=== PATIENT | male | born 1995 | race Caucasian/White ===

== ENCOUNTER 2019-07-13 16:48 | Emergency (ER) | payer BC ==
[~2019-07-13] VITALS: Ht 175.3 cm; Wt 81.6 kg
[~2019-07-13 16:48] MED LIST: PRO AIR; PROSUD INH; XOP1.25
[2019-07-13 16:52] VITALS: Ht 175.3 cm; Wt 81.6 kg
[2019-07-13 18:10] VITALS: BP 110/67
== END 2019-07-13 18:10 | disposition home or self-care (01) ==
LOC: ED 16:48
DX: J06.9 Acute upper respiratory infection, unspecified (principal); J45.901 Unspecified asthma with (acute) exacerbation; Z90.89 Acquired absence of other organs
CPT/HCPCS: J1100; J7613; J7644; Q0092

== ENCOUNTER 2019-07-14 21:08 | Inpatient (IN) | payer BC ==
[~2019-07-14] VITALS: Ht 175.3 cm; Wt 83.5 kg
[2019-07-14 21:12] VITALS: Ht 175.3 cm; Wt 83.5 kg
--- NOTE | 2019-07-14 21:12 | NUR ---
TAKEN TO BED 2A FOR BEDSIDE TRIAGE.
--- NOTE | 2019-07-14 21:21 | NUR ---
PT CAME TO ED DUE TO C/O OF SOB, COUGH AND SORE THROAT, PT WAS SEEN MD YESTERDAY AND RECEIVED PREDNISONE AND ALBUTEROL, PT STATED THAT TODAY ITS HARD FOR HIM TO BREATH AND HE USED HIS INHALER FOR 50 TIMES AND HAD NEB TREATMENT 4-5 TIMES PRIOR TO ED, PT IS AAO X 4, MILD SOB ON EXERTION, LUNG SOUNDS WITH INS WHEEZING, ON ROOM AIR WITH SPO2:95%-100%, DR BARRETT AT BEDSIDE AND MSE DONE.
[2019-07-14 23:08] LABS: BASOPHIL % 0.1 % (0-2); PLATELET COUNT 192 x10^3mcL (130-400); RED CELL DISTRIBUTION WIDTH 13.3 % (11.5-14.5)
[2019-07-14 23:18] LABS: CALCIUM 8.5 mg/dL (8.5-10.1); CARBON DIOXIDE 25.4 mmol/L (21-32); CHLORIDE SERUM 105 mmol/L (98-107); CREATININE SERUM 1.1 mg/dL (0.7-1.3); GFR1 > 60 mL/min; GLUCOSE SERUM 137 mg/dL (74-106); POTASSIUM SERUM 3.1 mmol/L (3.5-5.1); SODIUM SERUM 142 mmol/L (136-145)
--- NOTE | 2019-07-14 23:29 | NUR ---
PT'S TEMP:101.5 VIA ORAL, DR BARRETT MADE AWARE.
[2019-07-14 23:34] LABS: ALBUMIN 3.7 g/dL (3.4-5.0); ALKALINE PHOSPHATASE 91 U/L (46-116); ALT/SGPT 33 U/L (16-63); AST/SGOT 14 U/L (15-37); BILIRUBIN TOTAL 0.15 mg/dL (0.20-1.00); TOTAL PROTEIN, SERUM 7.1 g/dL (6.4-8.2)
[2019-07-15] VITALS (8 sets, daily range): BP systolic 93–129; BP diastolic 50–79
--- NOTE | 2019-07-15 | NUR ---
REPORT CALLED AND GIVEN TO NANCY, ALL QUESITONS ANSWERED AND CONCERNS ADDRESSED.
--- NOTE | 2019-07-15 01:17 | NUR ---
RECEIVED FROM ER, TRANSPORTED VIA [facility]. AWAKE AND ALERT, ORIENTED TO NAME, PLACE, TIME AND SITUATION. SPEECH CLEAR AND APPROPRIATE. AMBULATED TO ROOM WITH STEADY GAIT. LUNG SOUNDS DIMINISHED TO BASES. ON ROOM AIR. RR 22/MIN. HR 120/MIN. SINUS IN RHYTHM. SALINE LOCK TO LEFT AC. INSTRUCTED ON USE OF CALL LIGHT TO CALL FOR ASSISTANCE, PLACED WITHIN EASY REACH. PT'S SPOUSE WITH PT ON ADMISSION TO UNIT. ENDORSED TO NURSE MARQUEZ
--- NOTE | 2019-07-15 01:17 | NUR ---
RECEIVED A CALL FROM LAB, LACTIC ACID=3.0. DR. HILL IS PAGED TO MADE AWARE, WAITING FOR CALLBACK. PRIMARY NURSE MADE AWARE
--- NOTE | 2019-07-15 02:12 | NUR ---
MADE AWARE BY RESOURCE RN, LACTIC ACID: 3.0. PAGED AND PAGEGATED. ORDERED RECEIVED FOR 1L NS BOLUS AND REPEAT LAB FOR LACTIC ACID. BOLUS ADMINISTERED. IV PATENT AND INTACT. ON TELE# [address] FEBRILE AT 101.0, COOLING MEASURE INITIATED. SCHEDULED MEDICATIONS ADMINISTERED. C/O SORE THROAT MEDICATED PER EMAR. BED IN LOWEST POSITION. SIDE RAILS UPX2. CALL LIGHT WITHIN REACH. WILL CONTINUE TO MONITOR.
[2019-07-15 02:41] LABS: AMPHETAMINE QUAL UR NONE DETECTED (See below)
[2019-07-15 03:48] LABS: PLATELET COUNT 192 x10^3mcL (130-400); RED CELL DISTRIBUTION WIDTH 13.2 % (11.5-14.5)
[2019-07-15 03:50] LABS: BASOPHIL % 0 % (0-2)
[2019-07-15 04:02] LABS: CALCIUM 7.4 mg/dL (8.5-10.1); CARBON DIOXIDE 20.7 mmol/L (21-32); CHLORIDE SERUM 108 mmol/L (98-107); CREATININE SERUM 1.1 mg/dL (0.7-1.3); GFR1 > 60 mL/min; GLUCOSE SERUM 169 mg/dL (74-106); MAGNESIUM 1.3 mg/dL (1.8-2.4); PHOSPHOROUS 3.2 mg/dL (2.5-4.9); POTASSIUM SERUM 3.6 mmol/L (3.5-5.1); SODIUM SERUM 143 mmol/L (136-145)
--- NOTE | 2019-07-15 06:41 | NUR ---
PT SLEPT IN INTERVALS THROUGHOUT THE SHIFT. FAMILY AT BEDSIDE. ALL NEEDS TENDED TO AND MET. ALL SCHEDULED MEDICATIONS GIVEN. EVEN AND UNLABORED RESPIRATIONS ON RA. ON TELE# 21 READING SR/SA 67. IV PATENT AND INTACT RUNNING FLUIDS PER EMAR. WILL ENDORSE TO ONCOMING SHIFT.
--- NOTE | 2019-07-15 07:25 | NUR ---
REPORT TAKEN FROM COMPUTER PERIPHERAL EQUIPMENT OPERATOR NURSE AT THE BEDSIDE, PATIENT RESTING WITH EYES CLOSED AT THIS TIME, CHEST RISE AND FALL OBSERVED, PATIENT IN NO ACUTE DISTRESS, WILL CONTINUE TO MONITOR.
--- NOTE | 2019-07-15 17:20 | NUR ---
DR. ABREU MADE AWARE THAT PT IS INFLUENZA A POSITIVE. PRIMARY NURSE DAIANA MADE AWARE
--- NOTE | 2019-07-15 19:10 | NUR ---
CARE ASSUMED FROM OUTGOING RN. PT RESTING COMFORTABLY IN BED. NO ACUTE DISTRESS NOTED. EVEN AND UNLABORED RESPIRATIONS ON RA. ON TELE# 21 READING SB/SA 59. IV PATENT AND INTACT RUNNING FLUIDS PER EMAR. DROPLET PRECAUTION IN PLACE. BED IN LOWEST POSITION. SIDE RAILS UPX2. CALL LIGHT WITHIN REACH. WILL CONTINUE TO MONITOR.
--- NOTE | 2019-07-15 23:25 | NUR ---
PT RESTING COMFORTABLY IN BED. NO ACUTE DISTRESS NOTED. EVEN AND UNLABORED RESPIRATIONS ON RA. STATES NEED BREATHING TX SOON DUE TO FEELING CHEST TIGHTENING, PAGED RT. SCHEDULED ANTIBIOTICS, FLUIDS, AND PAIN MEDICATION GIVEN. PT TOLERATED WELL. BED IN LOWEST POSITION. DROPLET PRECAUTION IN PLACE. SIDE RAILS UPX2. CALL LIGHT WITHIN REACH. WILL CONTINUE TO MONITOR.
[2019-07-16 05:27] VITALS: BP 106/55
--- NOTE | 2019-07-16 06:49 | NUR ---
PT SLEPT IN INTERVALS THROUGHOUT THE SHIFT. ALL NEEDS TENDED TO AND MET. C/O SOB AT TIMES THROUGHOUT THE SHIFT. RT PROTOCOL IN PLACE. DROPLET PRECAUTION IN PLACE. ON TELE# [address] IV PATENT AND INTACT. BED IN LOWEST POSITION. SIDE RAILS UPX2. CALL LIGHT WITHIN REACH. WILL ENDORSE TO ONCOMING SHIFT.
--- NOTE | 2019-07-16 07:00 | NUR ---
RECEIVED REPORTED FROM JIMMY VELAZQUEZ AT BEDSIDE, PT RESTING IN BED IN NO ACUTE DISTRESS
--- NOTE | 2019-07-16 07:15 | NUR ---
PT ON DROPLET ISOLATION D/T INFLUENZA A (+), PT ON TAMIFLU TX AND RT PROTOCOL
[2019-07-16 07:19] LABS: BASOPHIL % 0.1 % (0-2); PLATELET COUNT 221 x10^3mcL (130-400)
[2019-07-16 07:26] LABS: CALCIUM 8.7 mg/dL (8.5-10.1); CARBON DIOXIDE 26.4 mmol/L (21-32); CHLORIDE SERUM 107 mmol/L (98-107); CREATININE SERUM 0.8 mg/dL (0.7-1.3); GFR1 > 60 mL/min; GLUCOSE SERUM 132 mg/dL (74-106); PHOSPHOROUS 4.1 mg/dL (2.5-4.9); POTASSIUM SERUM 3.9 mmol/L (3.5-5.1); SODIUM SERUM 142 mmol/L (136-145)
--- NOTE | 2019-07-16 07:30 | NUR ---
PT RESTING IN BED, IN NO ACUTE DISTRESS, VERBAL, ABLE TO MAKE NEEDS KNOWN, CALM AND COPPERATIVE, AXOX4, PERLLA, NO REDNESS/DRAINAGE, NO FACIAL DROOP/SLURRED SPEECH, RESP EVEN, NO SOB, EPISODES OF PRODUCTIVE COUGH, GREEN IN COLOR, RA, LUNGS DIM BLL, WHEEZING AT TIMES, RT PROTOCOL, I.S. AT BEDSIDE, CHEST RISE SYMMETRICALLY, TELE # 21, SR, HR-87 AT THIS TIME, DENIED CP/PALPITATION, DENIED PAIN/DISCOMFORT, DENIED N/V/D, DENIED EASON/DIZZINESS, ABD FLAT AND NON-TENDER TO TOUCH, BS ACTIVE X 4, SKIN C/D/W, SEE SKIN ASSESSMENT, CONTINENT, AMBULATION, PALP PULSES, CAP REFILL < 2S, EQUAL HAND LOG TRUCK DRIVER, IV PATENT AND INFUSING WELL, REGULAR DIET, ALL NEEDS ADDRESSED AT THIS TIME, SAFETY PROTOCOL FOLLOWED, CONTINUE TO MONITOR
--- NOTE | 2019-07-16 09:09 | NUR ---
AM MEDs GIVEN PER MD ORDER VIA EMAR, TOLERATED WELL, NO ASE NOTED AT THIS TIME, EDUCATED PT R/T MEDs, ASE AND MONITOR, VERBALLY UDNERSTANDING, ALL NEEDS ADDRESSED AT THIS TIME, SAFETY PROTOCOL FOLLOWED, CONTINUE TO MONITOR
[2019-07-16 09:20] VITALS: BP 109/56
--- NOTE | 2019-07-16 13:24 | NUR ---
PT RESTING IN BED, TOLERATED LUNCH WELL, FAMILY AT BEDSIDE, IV PATENT AND INFUSING WELL, ENCOURAGED TO USE I.S. AT BEDSIDE, VERBALLY UNDERSTANDING, RT PROTOCOL, ALL NEEDS ADDRESSED AT THIS TIME, SAFETY PROTOCOL FOLLOWED, CONTINUE TO MONITOR
[2019-07-16 14:09] VITALS: BP 98/46
--- NOTE | 2019-07-16 14:13 | NUR ---
PT TRASNFERED TO MEDSURG, TELE #21 REMOVED AND RETURNED TO [facility], PT REPORTED SORETHROAT, MEDICATED PER PRN ORDER VIA EMAR, TOELRATED WELL, FAMILY AT BEDSIDE, ALL NEEDS ADDRESSED, EDUCATED PT R/T MED, ASE AND MONITOR, VERBALLY UNDERSTANDING, CONTINUE TO MONITOR
--- NOTE | 2019-07-16 17:20 | NUR ---
PT RESTING IN BED, IN NO ACUTE DISTRESS, DENIED PAIN/DISCOMFORT, RESP EVEN, NO SOB/COUGH AT THIS TIME, DENIED CP/PALPITATION, IV PATENT AND FLUSHING WELL, DRESSING CDI, ALL NEEDS ADDRESSED AT THIS TIME, SAFETY PROTOCOL FOLLOWED, WILL ENDORSE TO ONCOMING RN
[2019-07-16 18:06] VITALS: BP 121/55
--- NOTE | 2019-07-16 19:30 | NUR ---
PT RECIEVED FROM DAY NURSE. PT RESTING IN BED AT THIS TIME. DENIES PAIN OR DISCOMFORT. A/O X4, CALM AND COOPERATIVE AT THIS TIME. PT MS. DENIES CP, NV, DIZZINESS, OR PALPATATIONS. BREATHING E/U ON RA. NO COUGH NOTED AT THIS TIME. ABD SOFT AND ROUND, DENIES PAIN TO PALPATION. PT AMBULATORY AT BASELINE. IV TO LAC, INTACT AND INFUSING. YASMINE AT LOWEST POSITION. CALL LIGHT WITHIN REACH. WILL CONTINUE TO MONITOR.
[2019-07-16 20:16] VITALS: BP 129/65
--- NOTE | 2019-07-17 | NUR ---
PT RESTING IN BED AT THIS TIME. NO S/S OF PAIN OR DISCOMFORT NOTED. BREATHING E/U ON RA. NO SIGNS OF ACUTE DISTRESS AT THIS TIME. BED AT LOWEST POSITION. CALL LIGHT WITHIN REACH. WILL CONTINUE TO MONITOR.
--- NOTE | 2019-07-17 06:00 | NUR ---
PT RESTING IN BED AT THIS TIME. DENIES PAIN OR DISCOMFORT. BREAHTING E/U ON RA. NO SIGNS OF ACUTE DISTRESS AT THIS TIME. ALL NEEDS AND CONCERNS ADDRESSED THIS SHIFT. IV OT LAC INTACT AND INFUSING. BED AT LOWEST POSITION. CALL LIGHT WITHIN REACH. WILL CONTINUE TO MONITOR.
[2019-07-17 06:18] VITALS: BP 114/66
[2019-07-17 06:24] LABS: PLATELET COUNT 228 x10^3mcL (130-400); RED CELL DISTRIBUTION WIDTH 13.1 % (11.5-14.5)
[2019-07-17 06:31] LABS: BASOPHIL % 0 % (0-2)
[2019-07-17 06:50] LABS: CALCIUM 8.4 mg/dL (8.5-10.1); CARBON DIOXIDE 28.5 mmol/L (21-32); CHLORIDE SERUM 108 mmol/L (98-107); CREATININE SERUM 0.8 mg/dL (0.7-1.3); GFR1 > 60 mL/min; GLUCOSE SERUM 129 mg/dL (74-106); POTASSIUM SERUM 4.2 mmol/L (3.5-5.1); SODIUM SERUM 145 mmol/L (136-145)
--- NOTE | 2019-07-17 07:00 | NUR ---
RECEIVED REPORT FORM MARY RN AT BEDSIDE, PT RESTING IN BED IN NO ACUTE DISTRESS
--- NOTE | 2019-07-17 07:38 | NUR ---
PT RESTING IN BED, IN NO ACUTE DISTRESS, VERBAL, ABLE TO MAKE NEEDS KNOWN, CALM AND COPPERATIVE, DROPLET ISO, AXOX4, PERLLA, NO REDNESS/DRAINAGE, NO FACIAL DROOP/SLURRED SPEECH, RESP EVEN, NO SOB, EPISODES OF PRODUCTIVE COUGH, CLEAR IN COLOR, RA, LUNGS DIM BLL, WHEEZING AT TIMES, RT PROTOCOL, I.S. AT BEDSIDE, CHEST RISE SYMMETRICALLY, MEDSURG, DENIED CP/PALPITATION, DENIED PAIN/DISCOMFORT, DENIED N/V/D, DENIED EASON/DIZZINESS, ABD FLAT AND NON-TENDER TO TOUCH, BS ACTIVE X 4, SKIN C/D/W, SEE SKIN ASSESSMENT, CONTINENT, AMBULATION, PALP PULSES, CAP REFILL < 2S, EQUAL HAND LICENSING SERVICES CLERK, IV PATENT AND INFUSING WELL, REGULAR DIET, ALL NEEDS ADDRESSED AT THIS TIME, SAFETY PROTOCOL FOLLOWED, CONTINUE TO MONITOR
[2019-07-17 08:15] VITALS: BP 107/52
[2019-07-17 10:08] VITALS: BP 107/52
[2019-07-17] MEDS ORDERED: ZITHROMAX TRI-500 MG PO (11:01)
[2019-07-17] MEDS ORDERED: TAM75 PO (11:01)
[2019-07-17] MEDS ORDERED: ADV250/50 INH (11:02)
[2019-07-17] MEDS ORDERED: PREDNISONE20 MG PO ×2 (11:03→11:04)
--- NOTE | 2019-07-17 12:21 | NUR ---
DC PAPER SIGNED AND KEPT IN CHART, IV REMOVED, IV CATH TIP INTACT, NO ACTIVE BLEEDING NOTED, EDUCATED PT R/T VAPING CESATION R/T ASTHMA CONDITION, MEDs, ASE AND MONITOR, VERBALLY UNDERSTANDING, PT SAID WILL STOP VAPING AFTER HOSPITALIZATION D/T IT DAMAGE HIS RESP SYSTEM, PT MADE AWARE OF NEW PRESCRIPTION FAXED TO [facility] AND SAID WILL P/U AFTER DC, PT SAID IT'S HIS RESPONSIBLE TO F/U W/ PCP 3-4 DAYS AFTER DC HOME, ALL NEEDS ADDERSSED AT THIS TIME, QUESTIONS ASKED AND ANSWERED, NO FURTHER CONCERN NEEDED WHEN ASKED, PT SAID FATHER WILL P/U PT AND DRIVE PT HOME, PT MADE AWARE OF NURSING STAFFS WILL ASSISTED PT TO LOBBY VIA WC PER POLICY, PT IN NO ACUTE DISTRESS AT THIS TIME OF DC
--- NOTE | 2019-07-17 12:49 | NUR ---
PT RECEIVED NOTES FROM TOWER AIR TRAFFIC CONTROL SPECIALIST AMARI HUYNH R/T HOSPITALIZATION, NO FURTHER CONCERN NEEDED, PT ASISSTED TO LOBBY VIA WC BY NURSING STAFF, PT LEFT IN NO ACUTE DISTRESS
== END 2019-07-17 12:52 | disposition home or self-care (01) | DRG 202 ==
LOC: ED 21:08 → MU 23:19 → DU 23:19 → MU 07-16 14:13
PROVIDERS: Emergency Medicine; ADMIT Internal Medicine
DX: J45.901 Unspecified asthma with (acute) exacerbation (principal); J18.9 Pneumonia, unspecified organism; E87.6 Hypokalemia
CPT/HCPCS: 87804; 94150; G0378; J0456; J0696; J1885; J2920; J2930; J3105; J7030; J7060; J7613; J7620; J7644; Q0092